=== PATIENT | male | born 1940 | race Caucasian/White ===

== ENCOUNTER → 2018-11-07 | Outpatient (POV) | payer MEDICARE ==
[~2018-11-07] VITALS: Ht 172.7 cm; Wt 90.9 kg
[2018-11-07 13:00] VITALS: BP 122/77
--- NOTE | 2018-11-08 10:10 | IRCOV ---
[facility] IR Consult Office Visit IR Consult Office Visit DATE: Nov 07, 2018 REASON FOR CONSULTATION/CHIEF COMPLAINT: Renal cancer. HISTORY OF PRESENT ILLNESS: 78-year-old male incidentally found to have a left renal mass on CT performed 2 months ago for diverticulitis. No hematuria. No loss of appetite or change in weight. No flank pain. Currently being worked up for recurrent diverticulitis and pending repeat colonoscopy. ALLERGIES: Please see below. HOME MEDICATIONS: Please see below. PAST MEDICAL HISTORY: 1. Prediabetic 2. Diverticulitis PAST SURGICAL HISTORY: 1. Skin cancer FAMILY HISTORY: Nonsignificant. SOCIAL HISTORY: Denies smoking drugs or alcohol. Active and otherwise well. REVIEW OF SYSTEMS: Otherwise negative PHYSICAL EXAMINATION: VITAL SIGNS: Please see below. GENERAL APPEARANCE: Appears well. Comfortable at rest. HEENT: No scleral icterus. RESPIRATORY: Symmetric breath sounds. CARDIOVASCULAR: Normal rate. ABDOMEN: Soft nontender no rebound or guarding. EXTREMITIES: Moving all 4 extremities. NEUROLOGICAL: Alert and oriented. PSYCHIATRIC: Appropriate to circumstance. LABORATORY DATA: 05/09/2018 BUN 17 creatinine 0.8 sodium 139 potassium 4.3 Urine analysis blood negative nitrites negative 08/02/2018 Hemoglobin 14.6 hematocrit 43.1 WBC 12.3 platelets 237. Imaging: I personally reviewed the outside CT abdomen with contrast provided by the patient. There is a 4 cm contrast-enhancing exophytic mass arising off the posterior left kidney. ASSESSMENT/PLAN: 78-year-old male with incidentally found enhancing solid mass off the left kidney presents for discussions regarding ablation. Upon review of imaging and seeing the patient, I agree patient is a candidate for cryoablation. This would be done under moderate sedation and would not require the additional risk of general anesthesia. It is a day procedure, we discussed the risks and benefits of the procedure. Patient will consider his options and call us back if he would like to schedule the procedure. I spent 30 minutes in consultation with the patient. Thank you for this referral. VS, I&O, 24H, Fishbone Vital Signs/I&O Vital Signs Date Time Temp Pulse Resp B/P (MAP) Pulse Ox O2 Delivery O2 Flow Rate FiO2 11/07/18 13:00 98.1 75 16 122/77 (92) 96 DEANNA CEE MD Nov 08, 2018 10:10
== END ==
LOC: M IRPOV 13:06
PROVIDERS: ATTEND Radiology Diagnostic Radiology
DX: D41.02 Neoplasm of uncertain behavior of left kidney (principal); K57.32 Diverticulitis of large intestine without perforation or abscess without bleeding; R73.03 Prediabetes; Z85.828 Personal history of other malignant neoplasm of skin

== ENCOUNTER → 2019-01-01 | Outpatient (CLI) | payer MEDICARE ==
[~2019-01-01] MED LIST: LIDOCAINE 1% MDV 20ML VIAL As Ordered ONE; METF-791 PO; MIDAZOLAM INJ 2 MG/2 ML VIAL (J2250) As Ordered ONE; ceFAZolin 1GM INJ (J0690 PER 500MG) As Ordered ONE; diphenhydrAMINE INJ 50MG/ML VIAL (J1200) As Ordered ONE; fentaNYL 100 MCG/2 ML INJECTION (J3010) As Ordered ONE
[2019-01-01 12:18] LABS: HEMATOCRIT 48.6 % (42.0-52.0); HEMOGLOBIN 16.5 g/dl (13.5-17.5); MEAN CORPUSCULAR HEMOGLOBIN 31.1 pg (27.0-33.0); MEAN CORPUSCULAR VOLUME 91.7 fl (80.0-96.0); PLATELET COUNT, AUTOMATED 291 10^3/uL (150-450); WHITE BLOOD COUNT 7.4 10^3/uL (4.0-10.0)
--- NOTE | 2019-01-01 12:29 | IRINPTCON ---
[facility] IR Inpatient Consultation IR Inpatient Consultation DATE: Jan 01, 2019 REASON FOR CONSULTATION/CHIEF COMPLAINT: greater then 30 days since last H&P and needs updated H&P prior to procedure HISTORY OF PRESENT ILLNESS: left renal cancer. no hematuria. no new complaints ALLERGIES: Please see below. HOME MEDICATIONS: Please see below. PAST MEDICAL HISTORY: diverticulitis skin cancer PAST SURGICAL HISTORY: no renal surgeries. FAMILY HISTORY: non contributory. SOCIAL HISTORY:non smoker. no alcohol or drugs REVIEW OF SYSTEMS: Otherwise negative PHYSICAL EXAMINATION: VITAL SIGNS: Please see below. GENERAL APPEARANCE: Appears well. Comfortable at rest. HEENT: No scleral icterus. RESPIRATORY: Normal breathing at rest. CARDIOVASCULAR: Normal rate. ABDOMEN: Non-distended. EXTREMITIES: moving all 4 extremities. NEUROLOGICAL: Alert and oriented. PSYCHIATRIC: Appropriate to circumstance. LABORATORY DATA: Please see below. Imaging: I reviewed the prior CT with contrast from July this year. 3 - 4 cm enhancing left renal mass. ASSESSMENT/PLAN: left renal cryoablation. Thank you for this referral. Allergies Coded Allergies: No Known Allergies (Unverified , 12/22/18) Home Medications Scheduled Metformin HCl (Metformin HCl ER), 2 TAB PO DAILY, (Reported) VS, I&O, 24H, Fishbone Vital Signs/I&O Vital Signs Date Time Temp Pulse Resp B/P (MAP) Pulse Ox O2 Delivery O2 Flow Rate FiO2 01/01/19 12:13 98.0 70 16 98 Room Air Laboratory Data 24H LABS Laboratory Tests 2 01/01/19 11:57: Nucleated Red Blood Cells % (auto) 0.0 CBC/BMP Laboratory Tests 01/01/19 11:57 DEANNA CEE MD Jan 01, 2019 12:29
--- NOTE | 2019-01-01 12:30 | IRMSE ---
[facility] IR Moderate Sedation Eval. Date and Time Date: Jan 01, 2019 Time: 12:30 ASA Classification ASA Classification: II-Mild systemic disease Mallampati Score: II NPO: Yes Obstructive Sleep Apnea: No Interval Plan: moderate sedation DEANNA CEE MD Jan 01, 2019 12:30
[2019-01-01 12:38] LABS: BLOOD UREA NITROGEN 18 MG/DL (7-18); CALCIUM LEVEL 9.1 MG/DL (8.8-10.2); CARBON DIOXIDE LEVEL 28 MEQ/L (21-32); CHLORIDE LEVEL 107 MEQ/L (98-107); CREATININE FOR GFR 0.94 MG/DL (0.70-1.30); GLOMERULAR FILTRATION RATE > 60.0 (>42); GLUCOSE, FASTING 118 MG/DL (70-100); POTASSIUM SERUM 4.3 MEQ/L (3.5-5.1); SODIUM LEVEL 141 MEQ/L (136-145)
--- NOTE | 2019-01-01 15:28 | POST-OPPD ---
Postoperative Procedure Note Date Of Procedure: Jan 01, 2019 Time Of Procedure: 15:27 PREOPERATIVE DIAGNOSIS: left RCC POSTOPERATIVE DIAGNOSIS: same FINDINGS: left RCC PROCEDURE: cryoablation SURGEON: belle ANESTHESIA: mod sed ESTIMATED BLOOD LOSS: < 5 ml COMPLICATIONS: none POSTOPERATIVE CONDITION: stable DEANNA CEE MD Jan 01, 2019 15:28
[2019-01-01 16:30] VITALS: BP 142/86
--- NOTE | 2019-01-02 07:44 | REP ---
IR CT guided renal tumor Cryoablation. IR CT guided needle placement. IR moderate sedation. Clinical information: Left renal tumor. Physician: Dr. Carlin. Procedure: The patient was advised of the benefits, risks and alternatives of the procedure and informed consent was obtained. The time-out was performed with verification of the patient's name, MRN, site of procedure and type of procedure to be performed. The patient was positioned in the prone position on the CT table. The site was prepped and draped in the usual sterile fashion. Moderate sedation was performed by the physician including the presence of an independent trained observer who assisted in monitoring the patient's level of consciousness and physiologic status. Following the administration of Fentanyl and Versed, the physician spent 90 minutes of continuous face to face time with the patient. Preliminary CT demonstrates an approximately 3.5 - 4 cm mass, part exophytic and part intra parenchymal, arising from the left kidney. The skin and expected tract were anesthetized with lidocaine. A small skin incision was then made. Using CT guidance, a 17 gauge cryoablation probe was advanced into the target lesion with intermittent CT guidance. A total of four cryoablation probes were inserted into the tumor under intermittent CT guidance in a configuration expected to get full tumor ablation. A 10-minute free cycle was then performed. Into procedural CT demonstrates complete coverage of the tumor. A 6-minute thaw was then observed. A second freeze cycle was then performed including 10-minute freeze. This was followed by a 6 minute thaw. The tract was ablated and the cryoablation probes were removed. Final CT demonstrates complete tumor coverage. No significant hematoma. The puncture site was cleansed and a sterile dressing was applied. The patient tolerated the procedure well and was returned to PRU in stable condition. EBL: Less than 5 ml. Complications: None. Impression: 1. CT demonstrates 3.5 - 4 cm left renal tumor. 2. Successful CT-guided cryoablation of right renal tumor. Patient to follow up in IR clinic in [address] imaging with IV contrast. Thank you this referral. Electronically Signed by Mariza Carlin MD 01/02/2019 07:42 A
== END ==
LOC: M IRPRO 11:36
PROVIDERS: ATTEND Radiology Diagnostic Radiology
DX: C64.2 Malignant neoplasm of left kidney, except renal pelvis (principal)
CPT/HCPCS: 50593; 77012; 80048; 85027; 99152; 99153; C2618; J0690; J2250; J3010

== ENCOUNTER → 2019-04-03 | Outpatient (CLI) | payer MEDICARE ==
[~2019-04-03] MED LIST changes: +ISOVUE-370 76% 100ML VIAL (Q9967) As Ordered ONE; -LIDOCAINE 1% MDV 20ML VIAL As Ordered ONE; -MIDAZOLAM INJ 2 MG/2 ML VIAL (J2250) As Ordered ONE; -ceFAZolin 1GM INJ (J0690 PER 500MG) As Ordered ONE; -diphenhydrAMINE INJ 50MG/ML VIAL (J1200) As Ordered ONE; -fentaNYL 100 MCG/2 ML INJECTION (J3010) As Ordered ONE
[2019-04-03 10:05] LABS: BLOOD UREA NITROGEN 13 MG/DL (7-18); CALCIUM LEVEL 9.5 MG/DL (8.8-10.2); CARBON DIOXIDE LEVEL 31 MEQ/L (21-32); CHLORIDE LEVEL 106 MEQ/L (98-107); GLOMERULAR FILTRATION RATE > 60.0 (>42); GLUCOSE, FASTING 122 MG/DL (70-100); POTASSIUM SERUM 4.2 MEQ/L (3.5-5.1); SODIUM LEVEL 139 MEQ/L (136-145)
--- NOTE | 2019-04-03 14:37 | REP ---
CT ABDOMEN: WITH IV BUT WITHOUT ORAL CONTRAST. HISTORY: Followup ablation renal mass. The patient is status post cryoablation of a left renal tumor on January 01, 2019. Comparison CT study, August 02, 2018. CT CONTRAST DOSE: 100 mL of intravenous Isovue 370. CT FINDINGS: Preliminary digital foam rubber fabricator radiograph is unremarkable. The lung bases remain clear. There is no evidence of pleural effusion or upper abdominal ascites. The liver and the spleen are normal in size and homogeneous in texture. No adrenal lesion is seen on either side. No abnormality is noted in the gallbladder or within the pancreas. There is pancolonic diverticulosis. Normal appendix. No CT evidence of diverticulitis. Bilateral parapelvic cysts are seen in the kidneys. The right kidney is unchanged and unremarkable. There is no evidence of regional lymphadenopathy. The left renal artery is duplicated, as before. There is soft tissue density at the site of the left renal tumor ablation 3.2 cm x 3.3 cm in diameter. No hypervascular tissue appears to be present. There is a defect in the adjacent cortex posteriorly at the site of the ablation. There is some fibrosis in the adjacent perinephric fat. The renal vein is unremarkable. IMPRESSION: Status post ablation of lower pole neoplasm, left kidney. There is residual soft-tissue density, but there is no longer evidence of contrast enhancement in this region. Parapelvic cysts are noted bilaterally. Pancolonic diverticulosis of the colon. No evidence of mass or adenopathy. Electronically Signed by Apolinar Barclay MD 04/03/2019 05:48 P
== END ==
LOC: M RAD 09:04
PROVIDERS: ATTEND Radiology Diagnostic Radiology
DX: C64.2 Malignant neoplasm of left kidney, except renal pelvis (principal)
CPT/HCPCS: 36415; 74160; 80048; Q9967

== ENCOUNTER → 2019-04-03 | Outpatient (POV) | payer MEDICARE ==
[~2019-04-03] VITALS: Ht 172.7 cm; Wt 90.9 kg
[~2019-04-03] MED LIST changes: -ISOVUE-370 76% 100ML VIAL (Q9967) As Ordered ONE
[2019-04-03 11:20] VITALS: BP 140/100
--- NOTE | 2019-04-04 09:21 | IRPN ---
[facility] IR Progress Note IR Progress Note DATE: Apr 03, 2019 FOLLOW-UP: 3 months status post left renal tumor cryoablation. Patient doing well. No complaints. Imaging: I personally reviewed the same day CT abdomen with contrast. There is no further enhancement within the treated left renal cancer. There are post cryoablation changes in the area. No residual or recurrent enhancing mass. No enhancing mass in the contralateral kidney. IMPRESSION: 3 months status post left renal cancer cryoablation. Good treatment response, there is no suspicious enhancement in the treated region. Follow-up CT imaging in 6 months time for ongoing surveillance. Thank you for this referral [facility] Allergies Coded Allergies: No Known Allergies (Unverified , 12/22/18) VS,Fishbone, I+O VS, Fishbone, I+O Vital Signs Date Time Temp Pulse Resp B/P (MAP) Pulse Ox O2 Delivery O2 Flow Rate FiO2 04/03/19 11:20 97.6 70 18 140/100 (113) 95 Room Air DEANNA CEE MD Apr 04, 2019 09:21
== END ==
LOC: M IRPOV 10:39
PROVIDERS: ATTEND Radiology Diagnostic Radiology
DX: C64.2 Malignant neoplasm of left kidney, except renal pelvis (principal)

== ENCOUNTER → 2020-02-12 | Outpatient (POV) | payer MEDICARE ==
[~2020-02-12] MED LIST changes: -METF-791 PO; +METF-838 PO
--- NOTE | 2020-02-18 12:36 | IRPN ---
[facility] IR Progress Note IR Progress Note DATE: Feb 12, 2020 Patient's follow-up will be scheduled for after imaging is done. Allergies Coded Allergies: No Known Allergies (Unverified , 12/22/18) DEANNA CEE MD Feb 18, 2020 12:36
== END ==
LOC: M TMIRPOV 09:49
PROVIDERS: ATTEND Radiology Diagnostic Radiology
DX: Z48.816 Encounter for surgical aftercare following surgery on the genitourinary system (principal)

== ENCOUNTER → 2020-05-16 | Outpatient (CLI) | payer MEDICARE ==
[~2020-05-16] MED LIST changes: +ISOVUE-370 76% 100ML VIAL As Ordered ONE
--- NOTE | 2020-05-16 17:49 | REP ---
INDICATION: POST CRYOABLATION RCC COMPARISON: 04/03/2019. TECHNIQUE: CT Scan of the abdomen was performed without, then with intravenous administration of 100 cc of Isovue 370, without oral contrast. Sagittal and coronal reconstruction images are performed. FINDINGS: Lung bases: Unremarkable. Liver: Normal Gallbladder: Unremarkable. Spleen: Normal. Adrenals: Normal. Pancreas: Normal. Kidneys: Once again there are multiple bilateral parapelvic cysts present. At the site of the previously noted mass of the lower pole the left kidney there is again some residual nonenhancing soft tissue density. This measures about 1.9 x 2.5 cm, on the prior study of 04/03/2027 measured 2.7 x 3.5 cm. Small and large bowel: Colonic diverticulosis is again noted with no evidence for bowel inflammation. Free fluid: None. Abdominal aorta: No aneurysm or dissection. Adenopathy: None. Osseous structures: There are degenerative changes of the spine without compression deformity. IMPRESSION: Status post ablation of lower pole neoplasm left kidney. Residual nonenhancing soft tissue density is again seen at the site of the prior mass, and this has decreased since the prior study of 04/03/2019 as discussed above. <Electronically signed by Marin Vasquez > 05/16/20 [id number]
== END ==
LOC: M RAD 16:53
PROVIDERS: ATTEND Radiology Diagnostic Radiology
DX: Z92.89 Personal history of other medical treatment (principal); C64.9 Malignant neoplasm of unspecified kidney, except renal pelvis
CPT/HCPCS: 74170; Q9967

== ENCOUNTER → 2020-05-27 | Outpatient (POV) | payer MEDICARE ==
[~2020-05-27] VITALS: Ht 175.3 cm; Wt 79.1 kg
[~2020-05-27] MED LIST changes: -ISOVUE-370 76% 100ML VIAL As Ordered ONE
[2020-05-27 10:31] VITALS: BP 124/85
--- NOTE | 2020-05-30 08:35 | IRPN ---
[facility] IR Progress Note IR Progress Note DATE: May 27, 2020 FOLLOW-UP: 79-year-old male status post left renal tumor cryoablation performed in December 2018. Patient states he is doing well. No new complaints. He is here for review of follow-up imaging. Imaging: I personally reviewed the CT abdomen performed without and with contrast on 05/16/2020. Appropriately treated left renal tumor with no residual enhancement. Scar tissue decrease in size as expected. No residual or new enhancing tumor in the ipsilateral or contralateral kidney. IMPRESSION: Good results status post left renal tumor cryoablation. Patient will continue on annual surveillance. Thank you for this referral. CC Dr. Treadwell. [facility] PCP Allergies Coded Allergies: No Known Allergies (Unverified , 12/22/18) VS,Fishbone, I+O VS, Fishbone, I+O Vital Signs Date Time Temp Pulse Resp B/P (MAP) Pulse Ox O2 Delivery O2 Flow Rate FiO2 05/27/20 10:31 98.1 85 18 124/85 (98) 97 Room Air DEANNA CEE MD May 30, 2020 08:35
== END ==
LOC: M IRPOV 10:16
PROVIDERS: ATTEND Radiology Diagnostic Radiology
DX: N28.89 Other specified disorders of kidney and ureter (principal)

== ENCOUNTER → 2024-09-19 | Outpatient (REF) | payer MEDICARE | LOC: M SFHCDERM 16:37 | PROVIDERS: ATTEND Dermatology | DX: D48.9 Neoplasm of uncertain behavior, unspecified (principal) ==